=== PATIENT | male | born 1970 | race Caucasian/White ===

== ENCOUNTER 2020-11-14 10:40 | Inpatient (IN) | payer MEDICARE, OTHER ==
[~2020-11-14] VITALS: Ht 177.8 cm; Wt 107.0 kg
[~2020-11-14 10:40] MED LIST: ALDACTONE 25MG25 MG PO; ALDACTONE25 MG PO; AMOX TR-K CLV1 EAC4 PO; INDERAL TAB 1010 MG PO; KLONOPIN2 MG PO; LACTULOSE10 GM/15 M PO; LASIX20 MG PO; MAG-OX 400 TAB400 MG PO; METHADONE HCL10 MG PO; MIRTAZAPINE45 MG PO; MOBIC15 MG PO; MORPHINE SULFAT15 M2 PO; NEURONTIN300 MG PO; NEXIUM20 MG PO; NORCO 10-325 T1 EACH PO; OXYCODONE HCL10 MG PO; OXYCODONE HCL5 MG PO; POTASSIUM CHLO20 ME2 PO; XIFAXAN 550 MG550 MG PO
[2020-11-14 11:50] LABS: HEMOGLOBIN 11.7 gm/dl (14.0-17.5); RED BLOOD COUNT 3.68 M/UL (4.20-5.50)
[2020-11-14 12:10] LABS: BUN/CREATININE RATIO 26 (0-10)
[2020-11-14] MEDS ORDERED: ALDACTONE 25MG25 MG PO (16:24)
[2020-11-14] MEDS ORDERED: HYDROCODONE-AC1 EACH PO (16:26)
[2020-11-14] MEDS ORDERED: PROAIR HFA8.5 GM INH (16:27)
[2020-11-14] MEDS ORDERED: HYDROXYZINE HCL25 MG PO (16:27)
[2020-11-14] MEDS ORDERED: MIDODRINE HCL5 MG PO (16:28)
[2020-11-14] MEDS ORDERED: NADOLOL20 MG PO (16:28)
[2020-11-15 06:49] LABS: HEMOGLOBIN 12.4 gm/dl (14.0-17.5); RED BLOOD COUNT 3.86 M/UL (4.20-5.50); WHITE BLOOD COUNT 14.1 K/UL (4.5-11.0)
[2020-11-15 07:17] LABS: BUN/CREATININE RATIO 36 (0-10)
[2020-11-15 15:04] LABS: HEMOGLOBIN 11.6 gm/dl (14.0-17.5); RED BLOOD COUNT 3.64 M/UL (4.20-5.50); WHITE BLOOD COUNT 12.3 K/UL (4.5-11.0)
[2020-11-15 15:30] LABS: BUN/CREATININE RATIO 39 (0-10)
--- NOTE | 2020-11-15 18:53 | NUR ---
DR MADISON OK WITH D/C'ING ISOLATION IF/WHEN [facility] RECORDS ARE RECEIVED AND IF IN FACT PT WAS COVID + IN JUNE, ISOLATION CAN BE REMOVED LONG HE CONTINUES TO BE ASYMPTOMATIC.
--- NOTE | 2020-11-16 03:10 | NUR ---
AT 0300 ROUNDING AND CIWA ASSESSMENT, PT THOUGHT HE WAS IN INTERMEDIATE AND HE REPEATEDLY ATTEMPTED TO TALK TO SOMEONE IN THE CORNER OF THE ROOM BUT NO ONE WAS IN THE ROOM. WCTM. MEDS GIVEN. SEE EMAR FOR MORE INFO.
[2020-11-16 05:40] LABS: HEMOGLOBIN 10.4 gm/dl (14.0-17.5); WHITE BLOOD COUNT 14.5 K/UL (4.5-11.0)
[2020-11-16 05:43] LABS: RED BLOOD COUNT 3.25 M/UL (4.20-5.50)
[2020-11-16 05:59] LABS: BUN/CREATININE RATIO 46 (0-10)
--- NOTE | 2020-11-16 09:30 | NUR ---
RECEIVED CONFIRMATION FROM HOSPITAL THAT PT DID INFACT HAVE COVID IN JUNE. COPY IS IN THE CHART. SPOKE WITH GAYATHRI VELARDE VIA TELEPHONE, ABLE TO CHANGE PT TO STANDARD ISOLATION NOW. DR MADISON MADE AWARE AND IS ALSO OK TO TAKE PT OUT OF AIRBORN PRECAUTIONS SINCE HE IS ASYMPTOMATIC AND AFEBRILE.
--- NOTE | 2020-11-17 05:21 | NUR ---
AT 0445 ON 11/17/20, PT HAD SEEPAGE AND LEAKING OF BLOOD FROM DRESSING SITE TO LEFT HIP. PER MD ORDERS DRESSING WAS RE-INFORCED WITH ABD PADS (X3) AND GAUZE TAPE. BLOOD LEAKAGE WAS SMALL TO MODERATE AMOUNT. AFTER DRESSING REINFORCED, NO MORE BLEEDING NOTED. WCTM
[2020-11-17] MEDS ORDERED: LACTULOSE10 GM/15 M PO (12:42)
[2020-11-17] MEDS ORDERED: KLONOPIN TAB 00.5 MG PO ×2 (12:42→13:15)
[2020-11-17] MEDS ORDERED: NEURONTIN300 MG PO (12:42)
[2020-11-17] MEDS ORDERED: GABAPENTIN300 MG PO (13:18)
[2020-11-19 03:43] LABS: RED BLOOD COUNT 3.12 M/UL (4.20-5.50)
[2020-11-19 04:09] LABS: BUN/CREATININE RATIO 35 (0-10)
--- NOTE | 2020-11-19 12:58 | NUR ---
1250: RN PASSED A 8 FR. DOBHOFF FEEDING TUBE VIA LEFT NARE, WITHOUT DIFFICULTY. TEMPORARARILY ANCHORED AT 80CMS AT THE RIGHT NARE. 1305: RADIOLOGY HERE FOR CXR FOR PLACEMENT NOW.
[2020-11-22 03:10] LABS: HEMOGLOBIN 9.7 gm/dl (14.0-17.5); RED BLOOD COUNT 3.04 M/UL (4.20-5.50); WHITE BLOOD COUNT 9.3 K/UL (4.5-11.0)
[2020-11-22 03:46] LABS: BUN/CREATININE RATIO 25 (0-10)
[2020-11-23 13:19] LABS: BUN/CREATININE RATIO 19 (0-10)
[2020-11-25 12:43] LABS: HEMOGLOBIN 8.9 gm/dl (14.0-17.5); RED BLOOD COUNT 2.84 M/UL (4.20-5.50); WHITE BLOOD COUNT 5.8 K/UL (4.5-11.0)
[2020-11-25 13:02] LABS: BUN/CREATININE RATIO 17 (0-10)
[2020-11-26 04:53] LABS: HEMOGLOBIN 8.2 gm/dl (14.0-17.5)
[2020-11-26 04:55] LABS: RED BLOOD COUNT 2.54 M/UL (4.20-5.50)
[2020-11-26 05:03] LABS: BUN/CREATININE RATIO 20 (0-10)
[2020-11-27 05:51] LABS: HEMOGLOBIN 8.1 gm/dl (14.0-17.5); RED BLOOD COUNT 2.53 M/UL (4.20-5.50)
[2020-11-27 06:08] LABS: BUN/CREATININE RATIO 20 (0-10)
[2020-11-28 05:44] LABS: BUN/CREATININE RATIO 18 (0-10)
[2020-11-30 06:06] LABS: HEMOGLOBIN 8.7 gm/dl (14.0-17.5); RED BLOOD COUNT 2.7 M/UL (4.20-5.50); WHITE BLOOD COUNT 3.3 K/UL (4.5-11.0)
[2020-11-30 06:33] LABS: BUN/CREATININE RATIO 21 (0-10)
[2020-12-05 06:12] LABS: HEMOGLOBIN 9.2 gm/dl (14.0-17.5); RED BLOOD COUNT 2.87 M/UL (4.20-5.50); WHITE BLOOD COUNT 3.2 K/UL (4.5-11.0)
[2020-12-05 06:38] LABS: BUN/CREATININE RATIO 29 (0-10)
[2020-12-06 02:52] LABS: HEMOGLOBIN 9.2 gm/dl (14.0-17.5); RED BLOOD COUNT 2.94 M/UL (4.20-5.50); WHITE BLOOD COUNT 3.3 K/UL (4.5-11.0)
[2020-12-06 03:23] LABS: BUN/CREATININE RATIO 26 (0-10)
[2020-12-07 04:56] LABS: HEMOGLOBIN 9.9 gm/dl (14.0-17.5); RED BLOOD COUNT 3.13 M/UL (4.20-5.50); WHITE BLOOD COUNT 3.4 K/UL (4.5-11.0)
[2020-12-07 05:11] LABS: BUN/CREATININE RATIO 30 (0-10)
[2020-12-08 04:09] LABS: HEMOGLOBIN 9.9 gm/dl (14.0-17.5); RED BLOOD COUNT 3.15 M/UL (4.20-5.50); WHITE BLOOD COUNT 3.8 K/UL (4.5-11.0)
[2020-12-08 04:38] LABS: BUN/CREATININE RATIO 32 (0-10)
[2020-12-09 04:08] LABS: HEMOGLOBIN 10.1 gm/dl (14.0-17.5); RED BLOOD COUNT 3.24 M/UL (4.20-5.50)
[2020-12-09 04:33] LABS: BUN/CREATININE RATIO 31 (0-10)
[2020-12-09 04:36] LABS: WHITE BLOOD COUNT 4.9 K/UL (4.5-11.0)
[2020-12-10 03:02] LABS: HEMOGLOBIN 10.5 gm/dl (14.0-17.5); RED BLOOD COUNT 3.37 M/UL (4.20-5.50); WHITE BLOOD COUNT 5.4 K/UL (4.5-11.0)
[2020-12-10 03:21] LABS: BUN/CREATININE RATIO 32 (0-10)
[2020-12-11 07:08] LABS: HEMOGLOBIN 11.1 gm/dl (14.0-17.5); RED BLOOD COUNT 3.51 M/UL (4.20-5.50); WHITE BLOOD COUNT 4.7 K/UL (4.5-11.0)
[2020-12-11 07:27] LABS: BUN/CREATININE RATIO 36 (0-10)
[2020-12-12 04:36] LABS: HEMOGLOBIN 10.3 gm/dl (14.0-17.5); RED BLOOD COUNT 3.26 M/UL (4.20-5.50)
[2020-12-12 04:43] LABS: WHITE BLOOD COUNT 6.3 K/UL (4.5-11.0)
[2020-12-13 06:27] LABS: HEMOGLOBIN 9.1 gm/dl (14.0-17.5)
[2020-12-13 06:33] LABS: RED BLOOD COUNT 2.82 M/UL (4.20-5.50)
[2020-12-13 06:57] LABS: BUN/CREATININE RATIO 42 (0-10)
[2020-12-13] MEDS ORDERED: GABAPENTIN300 MG PO (11:30)
[2020-12-13] MEDS ORDERED: HYDROCODONE-AC1 EACH PO (11:30)
--- NOTE | 2020-12-13 18:22 | NUR ---
REPORT CALLED TO [facility] NOTIFIED FOR TRANSPORT.
[2021-02-08] MEDS ORDERED: CORGARD20 MG PO (19:52)
== END 2020-12-13 19:05 | DRG 480 ==
LOC: ER1 10:40 → MED SURG 4 15:35 → CDU 15:35 → MED SURG 4 18:19
PROVIDERS: Emergency Medicine; Internal Medicine; Internal Medicine Gastroenterology; Orthopaedic Surgery; Physician Assistant; ADMIT Internal Medicine
PROC: 0QS706Z Reposition Left Upper Femur with Intramedullary Internal Fixation Device, Open Approach (ICD-10-PCS; principal; 2020-11-15 14:30)
PROC: 0W9G3ZZ Drainage of Peritoneal Cavity, Percutaneous Approach (ICD-10-PCS; 2020-11-24)
PROC: BW40ZZZ Ultrasonography of Abdomen (ICD-10-PCS; 2020-11-24)
DX: S72.142A Displaced intertrochanteric fracture of left femur, initial encounter for closed fracture (principal); K72.00 Acute and subacute hepatic failure without coma; R44.2 Other hallucinations; K76.6 Portal hypertension; C79.31 Secondary malignant neoplasm of brain; J90 Pleural effusion, not elsewhere classified; M48.54XA Collapsed vertebra, not elsewhere classified, thoracic region, initial encounter for fracture; D61.818 Other pancytopenia; L03.116 Cellulitis of left lower limb; I97.618 Postprocedural hemorrhage of a circulatory system organ or structure following other circulatory system procedure; Z20.822 Contact with and (suspected) exposure to COVID-19; F10.10 Alcohol abuse, uncomplicated; D69.6 Thrombocytopenia, unspecified; K80.20 Calculus of gallbladder without cholecystitis without obstruction; G62.9 Polyneuropathy, unspecified; W18.30XA Fall on same level, unspecified, initial encounter; E87.70 Fluid overload, unspecified; E87.5 Hyperkalemia; K70.31 Alcoholic cirrhosis of liver with ascites; Y83.8 Other surgical procedures as the cause of abnormal reaction of the patient, or of later complication, without mention of misadventure at the time of the procedure; Y92.009 Unspecified place in unspecified non-institutional (private) residence as the place of occurrence of the external cause; Z83.3 Family history of diabetes mellitus; Z80.9 Family history of malignant neoplasm, unspecified
CPT/HCPCS: 36415; 36600; 70450; 71045; 72125; 72128; 72131; 73502; 73552; 76000; 80048; 80053; 80307; 82140; 82330; 82803; 83690; 83735; 83970; 84100; 84132; 85025; 85027; 85610; 93005; 94640; 94760; 97110; 97110-GP-CQ; 97162; 97166; 97530; 97530-GP-CQ; 97535; 99285; C1713; G0480; J0610; J0690; J1100; J1650; J1940; J2001; J2060; J2250; J2270; J2405; J2704; J3010; J3370; J7030; J7120; P9047; Q9967; U0002

== ENCOUNTER 2021-02-08 14:58 | Inpatient (IN) | payer MEDICARE, OTHER ==
[~2021-02-08] VITALS: Ht 172.7 cm; Wt 130.0 kg
[~2021-02-08 14:58] MED LIST changes: +GABAPENTIN300 MG PO; +HYDROCODONE-AC1 EACH PO; +HYDROXYZINE HCL25 MG PO; +KLONOPIN TAB 00.5 MG PO; +MIDODRINE HCL5 MG PO; +NADOLOL20 MG PO; +PROAIR HFA8.5 GM INH
[2021-02-08 15:46] LABS: HEMOGLOBIN 11.5 gm/dl (14.0-17.5); RED BLOOD COUNT 4.03 M/UL (4.20-5.50); WHITE BLOOD COUNT 6.2 K/UL (4.5-11.0)
[2021-02-08 16:11] LABS: BUN/CREATININE RATIO 16 (0-10)
[2021-02-08] MEDS ORDERED: INDERAL TAB 1010 MG PO (19:48)
[2021-02-08] MEDS ORDERED: MIRTAZAPINE45 MG PO (19:48)
[2021-02-08] MEDS ORDERED: HYDROXYZINE HCL25 MG PO (19:51)
[2021-02-08] MEDS ORDERED: MIDODRINE HCL5 MG PO (19:51)
[2021-02-08] MEDS ORDERED: MAGNESIUM OXID400 M1 PO (19:53)
[2021-02-08] MEDS ORDERED: NEXIUM40 MG PO (19:53)
[2021-02-09 05:17] LABS: HEMOGLOBIN 11.1 gm/dl (14.0-17.5); RED BLOOD COUNT 3.86 M/UL (4.20-5.50); WHITE BLOOD COUNT 6.5 K/UL (4.5-11.0)
[2021-02-09 05:37] LABS: BUN/CREATININE RATIO 25 (0-10)
[2021-02-09 17:13] LABS: BODY FLUID SOURCE ASCITES; MONONUCLEAR CELLS 79 (75-100); POLYMORPHONUCLEAR % 21 (0-25); RBC (AUTOMATED) 1900 (0-100000); WBC (AUTOMATED) 158 (0-500)
[2021-02-10 00:06] LABS: ACINETOBACTER BAUMANNII Not Detected (Negative); CANDIDA ALBICANS Not Detected (Negative); CANDIDA KRUSEI Not Detected (Negative); CANDIDA TROPICALIS Not Detected (Negative); ENTEROCOCCUS Not Detected (Negative); HAEMOPHILUS INFLUENZAE Not Detected (Negative); KLEBSIELLA OXYTOCA Not Detected (Negative); KLEBSIELLA PNEUMONIAE Not Detected (Negative); KPC-CARBAPENEM-RESISTANCE GENE Not Detected (Negative); PROTEUS Not Detected (Negative); PSEUDOMONAS AERUGINOSA Not Detected (Negative); SERRATIA MARCESANS Not Detected (Negative); STAPHYLOCOCCUS Not Detected (Negative); STAPHYLOCOCCUS AUREUS Not Detected (Negative); STREP AGALACTIAE (GROUP B) Not Detected (Negative); STREP PYOGENES (GROUP A) Not Detected (Negative); STREPTOCOCCUS Not Detected (Negative); mecA (METHICILLIN RESIST GENE Not Detected (Negative); vanA/B (VANCOMYCIN RESIST GENE Not Detected (Negative)
[2021-02-10 01:22] LABS: ESCHERICHIA COLI DETECTED (Negative)
[2021-02-10 04:19] LABS: HEMOGLOBIN 11.2 gm/dl (14.0-17.5); RED BLOOD COUNT 3.94 M/UL (4.20-5.50)
[2021-02-10 04:22] LABS: WHITE BLOOD COUNT 13.3 K/UL (4.5-11.0)
[2021-02-10 04:37] LABS: BUN/CREATININE RATIO 27 (0-10)
[2021-02-11 04:51] LABS: HEMOGLOBIN 10.5 gm/dl (14.0-17.5); RED BLOOD COUNT 3.71 M/UL (4.20-5.50)
[2021-02-11 05:21] LABS: WHITE BLOOD COUNT 8.6 K/UL (4.5-11.0)
[2021-02-11 05:50] LABS: BUN/CREATININE RATIO 25 (0-10)
--- NOTE | 2021-02-11 19:00 | NUR ---
INITAIAL ASSESSMENT COMPLETE. ABD OOZING SEROUS DRAINAGE FROM PREVIOUS PARACENTESIS. ABD PAD PLACED OVER PUNCTURE SITE AND SECURED WITH ELASTICON TAPE.
--- NOTE | 2021-02-11 21:13 | NUR ---
DR. MOSS NOTIFIED REGARDING RESTRAINTS ON PATIENT. NEW ORDER WILL BE NEEDED AT 2300 TONIGHT AND HE WOULD NEED TO BE PHYSICALLY SEEN TO WRITE ORDER. NO NEW ORDER . RESTRAINTS TO BE DC'D .
[2021-02-12 05:35] LABS: HEMOGLOBIN 9.5 gm/dl (14.0-17.5); RED BLOOD COUNT 3.36 M/UL (4.20-5.50)
[2021-02-12 06:17] LABS: BUN/CREATININE RATIO 19 (0-10)
[2021-02-13 05:07] LABS: HEMOGLOBIN 10.5 gm/dl (14.0-17.5); RED BLOOD COUNT 3.67 M/UL (4.20-5.50); WHITE BLOOD COUNT 3.5 K/UL (4.5-11.0)
[2021-02-13 05:26] LABS: BUN/CREATININE RATIO 22 (0-10)
[2021-02-14 05:24] LABS: HEMOGLOBIN 11.5 gm/dl (14.0-17.5)
[2021-02-14 05:26] LABS: RED BLOOD COUNT 4.04 M/UL (4.20-5.50); WHITE BLOOD COUNT 5.3 K/UL (4.5-11.0)
[2021-02-14 06:05] LABS: BUN/CREATININE RATIO 26 (0-10)
[2021-02-15 03:38] LABS: HEMOGLOBIN 11.2 gm/dl (14.0-17.5); RED BLOOD COUNT 3.94 M/UL (4.20-5.50)
[2021-02-15 04:04] LABS: BUN/CREATININE RATIO 32 (0-10)
[2021-02-15 04:06] LABS: WHITE BLOOD COUNT 7.6 K/UL (4.5-11.0)
[2021-02-16 05:18] LABS: HEMOGLOBIN 11.1 gm/dl (14.0-17.5); RED BLOOD COUNT 3.87 M/UL (4.20-5.50)
[2021-02-16 05:19] LABS: WHITE BLOOD COUNT 4.4 K/UL (4.5-11.0)
[2021-02-16 05:43] LABS: BUN/CREATININE RATIO 32 (0-10)
[2021-02-17 03:28] LABS: HEMOGLOBIN 10.1 gm/dl (14.0-17.5); RED BLOOD COUNT 3.49 M/UL (4.20-5.50)
[2021-02-17 03:31] LABS: WHITE BLOOD COUNT 2.4 K/UL (4.5-11.0)
[2021-02-17 03:49] LABS: BUN/CREATININE RATIO 34 (0-10)
[2021-02-19 04:57] LABS: RED BLOOD COUNT 3.49 M/UL (4.20-5.50); WHITE BLOOD COUNT 2.3 K/UL (4.5-11.0)
[2021-02-19 05:34] LABS: BUN/CREATININE RATIO 37 (0-10)
[2021-02-20 02:14] LABS: HEMOGLOBIN 10.5 gm/dl (14.0-17.5); RED BLOOD COUNT 3.61 M/UL (4.20-5.50)
[2021-02-20 02:15] LABS: WHITE BLOOD COUNT 4.1 K/UL (4.5-11.0)
[2021-02-20 02:35] LABS: BUN/CREATININE RATIO 41 (0-10)
[2021-02-21 02:23] LABS: HEMOGLOBIN 10.6 gm/dl (14.0-17.5); RED BLOOD COUNT 3.7 M/UL (4.20-5.50); WHITE BLOOD COUNT 4.2 K/UL (4.5-11.0)
[2021-02-21 02:41] LABS: BUN/CREATININE RATIO 36 (0-10)
[2021-02-22 02:00] LABS: HEMOGLOBIN 10.5 gm/dl (14.0-17.5); RED BLOOD COUNT 3.59 M/UL (4.20-5.50)
[2021-02-22 02:24] LABS: BUN/CREATININE RATIO 37 (0-10)
[2021-02-23 03:11] LABS: HEMOGLOBIN 9.9 gm/dl (14.0-17.5); RED BLOOD COUNT 3.36 M/UL (4.20-5.50); WHITE BLOOD COUNT 3.3 K/UL (4.5-11.0)
[2021-02-23 03:44] LABS: BUN/CREATININE RATIO 41 (0-10)
[2021-02-24 03:39] LABS: HEMOGLOBIN 9.9 gm/dl (14.0-17.5); RED BLOOD COUNT 3.35 M/UL (4.20-5.50); WHITE BLOOD COUNT 2.9 K/UL (4.5-11.0)
[2021-02-24 04:03] LABS: BUN/CREATININE RATIO 31 (0-10)
[2021-02-25] MEDS ORDERED: REMERON 15 MG T15 MG PO (09:40)
[2021-02-25] MEDS ORDERED: BUMETANIDE1 MG PO (09:40)
[2021-02-25] MEDS ORDERED: ALDACTONE 25MG25 MG PO (09:40)
[2021-02-25] MEDS ORDERED: LACTULOSE10 GM/151 PR (09:40)
[2021-02-25] MEDS ORDERED: IPRAT-ALBUT 0.5-3 ML NEB (09:40)
[2021-02-25] MEDS ORDERED: CHRONULAC20 GM/30 M PO (09:40)
[2021-02-25] MEDS ORDERED: K-DUR TAB 10 M10 MEQ PO (09:43)
[2021-02-25] MEDS ORDERED: MINERAL OIL473 M2 PO (09:46)
[2021-02-25] MEDS ORDERED: MAGNESIUM CITR296 ML PO (09:46)
[2021-02-25 09:58] LABS: HEMOGLOBIN 10.3 gm/dl (14.0-17.5); RED BLOOD COUNT 3.5 M/UL (4.20-5.50); WHITE BLOOD COUNT 2.7 K/UL (4.5-11.0)
[2021-02-25 10:16] LABS: BUN/CREATININE RATIO 34 (0-10)
--- NOTE | 2021-02-25 17:30 | NUR ---
ATTEPTED TO CALL [facility] TWO DIFFERENT TIMES. I GOT TO THE PLEATER EACH TIME BUT SHE WAS NOT ABLE TO GET [facility] OF THE [facility] NURSE FOR ME TO MANAGER ASSET HER REPORT.
== END 2021-02-25 11:49 | disposition home health service (06) | DRG 870 ==
LOC: ER1 14:58 → PROG CARE 18:18 → CDU 18:18 → CCU 18:18 → PROG CARE 02-20 15:34
PROVIDERS: Emergency Medicine; Internal Medicine; Internal Medicine Pulmonary Disease; ADMIT Internal Medicine
PROC: 0BH17EZ Insertion of Endotracheal Airway into Trachea, Via Natural or Artificial Opening (ICD-10-PCS; principal; 2021-02-08)
PROC: 5A1955Z Respiratory Ventilation, Greater than 96 Consecutive Hours (ICD-10-PCS; 2021-02-08)
PROC: 0W9G3ZX Drainage of Peritoneal Cavity, Percutaneous Approach, Diagnostic (ICD-10-PCS; 2021-02-09)
PROC: 0DH67UZ Insertion of Feeding Device into Stomach, Via Natural or Artificial Opening (ICD-10-PCS; 2021-02-09)
PROC: 3E0G76Z Introduction of Nutritional Substance into Upper GI, Via Natural or Artificial Opening (ICD-10-PCS; 2021-02-09)
PROC: 0W9G3ZZ Drainage of Peritoneal Cavity, Percutaneous Approach (ICD-10-PCS; 2021-02-11)
DX: A41.51 Sepsis due to Escherichia coli [E. coli] (principal); R65.21 Severe sepsis with septic shock; J96.01 Acute respiratory failure with hypoxia; J15.4 Pneumonia due to other streptococci; G93.41 Metabolic encephalopathy; K72.00 Acute and subacute hepatic failure without coma; J96.02 Acute respiratory failure with hypercapnia; J69.0 Pneumonitis due to inhalation of food and vomit; U07.1 COVID-19; D61.818 Other pancytopenia; J98.11 Atelectasis; K76.6 Portal hypertension; J90 Pleural effusion, not elsewhere classified; E72.20 Disorder of urea cycle metabolism, unspecified; K56.7 Ileus, unspecified; K80.20 Calculus of gallbladder without cholecystitis without obstruction; K59.00 Constipation, unspecified; R50.9 Fever, unspecified; R16.1 Splenomegaly, not elsewhere classified; I95.9 Hypotension, unspecified; T50.995A Adverse effect of other drugs, medicaments and biological substances, initial encounter; E83.39 Other disorders of phosphorus metabolism; D69.6 Thrombocytopenia, unspecified; R53.81 Other malaise; K70.31 Alcoholic cirrhosis of liver with ascites; E83.42 Hypomagnesemia; B96.20 Unspecified Escherichia coli [E. coli] as the cause of diseases classified elsewhere; R34 Anuria and oliguria; G93.89 Other specified disorders of brain; E87.6 Hypokalemia; R00.1 Bradycardia, unspecified; Z86.16 Personal history of COVID-19; Z79.899 Other long term (current) drug therapy; Z83.3 Family history of diabetes mellitus; Z80.9 Family history of malignant neoplasm, unspecified; Z82.49 Family history of ischemic heart disease and other diseases of the circulatory system; Z85.841 Personal history of malignant neoplasm of brain; Z87.891 Personal history of nicotine dependence; Z99.81 Dependence on supplemental oxygen
CPT/HCPCS: ECHO; 0240U; 31500; 36415; 36600; 43752; 51702; 70450; 71045; 74018; 80048; 80053; 81001; 82140; 82150; 82550; 82553; 82728; 82803; 82962; 83605; 83615; 83690; 83735; 83880; 84100; 84132; 84439; 84443; 84484; 85007; 85025; 85027; 85379; 85384; 85610; 85730; 86140; 87040; 87070; 87077; 87081; 87086; 87150; 87186; 87205; 89051; 92526; 92610; 93005; 93306; 94003; 94640; 94660; 94760; 97110-GP-CQ; 97162; 97530-GP-CQ; 99285; C9113; J0461; J0696; J1265; J1335; J1650; J2185; J2250; J2550; J2704; J2765; J3475; J3480; J7030; J7050; P9047; Q9967

== ENCOUNTER → 2021-04-20 | Outpatient (CLI) | payer MEDICARE, OTHER ==
[~2021-04-20] MED LIST changes: +BUMETANIDE1 MG PO; +CHRONULAC20 GM/30 M PO; +CORGARD20 MG PO; +IPRAT-ALBUT 0.5-3 ML NEB; +K-DUR TAB 10 M10 MEQ PO; +LACTULOSE10 GM/151 PR; +MAGNESIUM CITR296 ML PO; +MAGNESIUM OXID400 M1 PO; +MINERAL OIL473 M2 PO; +NEXIUM40 MG PO; +REMERON 15 MG T15 MG PO
== END ==
LOC: KOH-I 09:25
DX: M48.54XA Collapsed vertebra, not elsewhere classified, thoracic region, initial encounter for fracture (principal); M51.34 Other intervertebral disc degeneration, thoracic region; M50.33 Other cervical disc degeneration, cervicothoracic region; M48.07 Spinal stenosis, lumbosacral region
CPT/HCPCS: 72141; 72146; 72148

== ENCOUNTER → 2021-04-22 | Outpatient (CLI) | payer MEDICARE, OTHER ==
[~2021-04-22] MED LIST changes: +CLONAZEPAM2 MG PO; +GABAPENTIN600 MG PO; +HYDROCODON-ACE1 EAC2 PO; +MIRTAZAPINE15 MG PO
== END ==
LOC: SLEEP 11:10
DX: R40.0 Somnolence (principal)
CPT/HCPCS: 95810

== ENCOUNTER 2021-04-27 19:47 | Inpatient (IN) | payer MEDICARE, OTHER ==
[~2021-04-27] VITALS: Ht 180.3 cm; Wt 82.1 kg
[~2021-04-27 19:47] MED LIST changes: -CLONAZEPAM2 MG PO; -CORGARD20 MG PO; -GABAPENTIN600 MG PO; -HYDROCODON-ACE1 EAC2 PO; -MIRTAZAPINE15 MG PO
[2021-04-27 21:27] LABS: HEMOGLOBIN 14.3 gm/dl (14.0-17.5); RED BLOOD COUNT 4.82 M/UL (4.20-5.50); WHITE BLOOD COUNT 8.9 K/UL (4.5-11.0)
[2021-04-27 21:44] LABS: BUN/CREATININE RATIO 18 (0-10)
[2021-04-28 04:06] LABS: HEMOGLOBIN 13.1 gm/dl (14.0-17.5); RED BLOOD COUNT 4.38 M/UL (4.20-5.50)
[2021-04-28 04:23] LABS: WHITE BLOOD COUNT 6.3 K/UL (4.5-11.0)
[2021-04-28 04:47] LABS: BUN/CREATININE RATIO 16 (0-10)
[2021-04-28] MEDS ORDERED: GABAPENTIN600 MG PO (10:52)
[2021-04-28] MEDS ORDERED: HYDROCODON-ACE1 EAC2 PO (10:53)
[2021-04-28] MEDS ORDERED: CLONAZEPAM2 MG PO (10:55)
[2021-04-28] MEDS ORDERED: MIRTAZAPINE15 MG PO (11:04)
[2021-04-28] MEDS ORDERED: CORGARD20 MG PO (19:52)
== END 2021-04-28 18:12 | disposition left against medical advice (07) | DRG 894 ==
LOC: ER1 19:47 → CDU 22:57 → MED SURG 4 04-28 18:00
PROVIDERS: Emergency Medicine; ADMIT Internal Medicine
DX: F10.288 Alcohol dependence with other alcohol-induced disorder (principal); E87.1 Hypo-osmolality and hyponatremia; E86.0 Dehydration; Z20.822 Contact with and (suspected) exposure to COVID-19; G89.29 Other chronic pain; D69.6 Thrombocytopenia, unspecified; E87.8 Other disorders of electrolyte and fluid balance, not elsewhere classified; D64.9 Anemia, unspecified; I10 Essential (primary) hypertension; Z96.698 Presence of other orthopedic joint implants; K70.30 Alcoholic cirrhosis of liver without ascites; F10.229 Alcohol dependence with intoxication, unspecified; E80.6 Other disorders of bilirubin metabolism; F17.210 Nicotine dependence, cigarettes, uncomplicated; Z87.81 Personal history of (healed) traumatic fracture; Z85.841 Personal history of malignant neoplasm of brain
CPT/HCPCS: 70450; 80053; 80307; 81001; 82140; 83690; 83735; 85025; 94640; 94664; 94760; 99285; G0480; J2597

== ENCOUNTER 2021-07-07 21:03 | Emergency (ER) | payer MEDICARE, OTHER ==
[~2021-07-07 21:03] MED LIST changes: +CLONAZEPAM2 MG PO; +CORGARD20 MG PO; +GABAPENTIN600 MG PO; +HYDROCODON-ACE1 EAC2 PO; +MIRTAZAPINE15 MG PO
[2021-07-07 22:19] LABS: BUN/CREATININE RATIO 64 (0-10)
[2021-07-07 22:24] LABS: HEMOGLOBIN 11.2 gm/dl (14.0-17.5); RED BLOOD COUNT 3.76 M/UL (4.20-5.50); WHITE BLOOD COUNT 11.7 K/UL (4.5-11.0)
[2021-07-08 01:18] LABS: WHITE BLOOD COUNT 14.2 K/UL (4.5-11.0)
[2021-07-08 01:24] LABS: HEMOGLOBIN 8.2 gm/dl (14.0-17.5); RED BLOOD COUNT 2.75 M/UL (4.20-5.50)
== END 2021-07-08 03:15 | disposition short-term general hospital (02) ==
LOC: ER1 21:03
PROVIDERS: Emergency Medicine
DX: K92.0 Hematemesis (principal); K74.60 Unspecified cirrhosis of liver; I85.00 Esophageal varices without bleeding; R57.0 Cardiogenic shock; Z20.822 Contact with and (suspected) exposure to COVID-19
CPT/HCPCS: 36430; 36556; 71045; 80053; 81001; 82140; 83690; 85025; 85610; 86850; 86900; 86901; 86920; 96374; 96375; 99285; C1751; C9113; J2405; J7030; P9016; Q9967; U0002

== ENCOUNTER 2022-01-13 16:40 | Emergency (ER) | payer MEDICARE, OTHER ==
[2022-01-13 17:47] LABS: HEMOGLOBIN 13.4 gm/dl (14.0-17.5); RED BLOOD COUNT 4.55 M/UL (4.20-5.50); WHITE BLOOD COUNT 10.9 K/UL (4.5-11.0)
[2022-01-13 18:06] LABS: BUN/CREATININE RATIO 11 (0-10)
== END 2022-01-13 19:54 | disposition home or self-care (01) ==
LOC: ER1 16:40
PROVIDERS: Physician Assistant
DX: G89.18 Other acute postprocedural pain (principal); M25.511 Pain in right shoulder; F17.210 Nicotine dependence, cigarettes, uncomplicated; I10 Essential (primary) hypertension
CPT/HCPCS: 73020; 80053; 83605; 85025; 99284

== ENCOUNTER 2022-03-29 18:51 | Emergency (ER) | payer MEDICARE, OTHER | END 2022-03-29 20:49 | disposition left against medical advice (07) | LOC: ER1 18:51 | DX: Z53.21 Procedure and treatment not carried out due to patient leaving prior to being seen by health care provider (principal) ==